=== PATIENT | male | born 1965 | race Caucasian/White ===

== ENCOUNTER 2020-09-17 09:01 | Outpatient (REF) | payer BC, SELFPAY ==
[2020-09-17 09:40] LABS: Hematocrit 40.4 % (42-52); Hemoglobin 13.9 g/dl (14.0-18.0); Mean Corpuscular HGB Conc 34.4 g/dl (31.0-36.0); Mean Corpuscular Hemoglobin 29.3 pg (27.0-33.0); Mean Corpuscular Volume 85.2 fL (80-98); Mean Platelet Volume 9.9 fL (9.4-12.4); Platelet Count 291 X10*3/uL (160-400); Red Blood Count 4.74 X10*6/uL (4.60-5.80); Red Cell Distribution Width 12.1 % (11.0-16.0)
[2020-09-17 10:19] LABS: Alanine Aminotransferase 85 U/L (0-40); Albumin Level 4.4 g/dL (3.5-5.0); Alkaline Phosphatase 116 U/L (39-117); Aspartate Amino Transferase 43 U/L (5-37); Bilirubin Total 0.8 mg/dL (0.0-1.0); Blood Urea Nitrogen 19 mg/dL (9-16); Calcium 8.7 mg/dL (8.4-10.2); Estimated Glomerular Filt Rate > 60; Glucose Fasting 117 mg/dL (60-99)
[2020-09-17 10:26] LABS: Thyroid Stimulating Hormone 0.61 uIU/mL (0.32-4.0)
[2020-09-17 10:30] LABS: Anion Gap 12 (12-20); Carbon Dioxide 25 mmol/L (22-29); Chloride 103 mmol/L (96-108); Potassium 4.2 mmol/L (3.3-5.1); Sodium 136 mmol/L (135-145)
[2020-09-17 10:39] LABS: Creatinine Urine 104.31 mg/dL; Microalbum/Creatinine Ratio Ur 4.7 ug/mg cr
[2020-09-17 11:42] LABS: Estimated Average Glucose 146 mg/dL; Hemoglobin A1c % 6.7 %
== END 2020-09-17 09:02 | disposition home or self-care (01) ==
LOC: HO.LAB 09:01
PROVIDERS: PCP Internal Medicine; Visit Provider Internal Medicine
DX: E11.9 Type 2 diabetes mellitus without complications (principal); E78.2 Mixed hyperlipidemia
CPT/HCPCS: 36415; 80053; 82043; 83036; 84443; 85027

== ENCOUNTER 2020-10-04 09:49 | Outpatient (REF) | payer BC, SELFPAY ==
--- NOTE | ~2020-10-04 | US_ITS ---
EXAMINATION: US ABDOMEN COMPLETE CLINICAL INFORMATION: Abnormal LFTs. COMPARISON: Ultrasound abdomen complete 09/27/2020. CT abdomen and pelvis 10/18/2013. TECHNIQUE: Real-time imaging of the abdominal viscera. FINDINGS: PANCREAS: Visualized portions unremarkable. ABDOMINAL AORTA: Visualized portions unremarkable. INFERIOR VENA CAVA: Visualized portions unremarkable. LIVER: Diffuse increased echotexture without focal abnormality. GALLBLADDER: Unremarkable. COMMON BILE DUCT: Normal in caliber measuring 0.4 cm in diameter. RIGHT KIDNEY: 11.7 cm. Unremarkable. LEFT KIDNEY: 11.8 cm. Unremarkable. SPLEEN: 11.1 cm. Unremarkable. FREE FLUID: None. US/US abdomen complete IMPRESSION: Hepatic steatosis without focal abnormality. No other significant abnormality.
== END 2020-10-04 09:50 | disposition home or self-care (01) ==
LOC: HO.US 09:49
PROVIDERS: Visit Provider Internal Medicine
DX: R94.5 Abnormal results of liver function studies (principal)
CPT/HCPCS: 76700

== ENCOUNTER 2021-01-03 17:58 | Emergency (ER) | payer BC, SELFPAY ==
[2021-01-03 18:11] VITALS: BP 145/83; PULSE 67; RESP 18; TEMP 36.7; O2SAT 96; BMI 28.8
[2021-01-03] MEDS: Fluorescein Sodium STRIP 1 STRIP EYE-RIGHT (19:49)
[2021-01-03] MEDS: Tetracaine HCl/PF 0.5% Oph Sol 4 ML DROPS 1 DROP EYE-BOTH (19:49)
--- NOTE | 2021-01-03 19:49 | ED_ITS ---
HPI - General Adult General Chief complaint: General Medical Stated complaint: bug bite Time Seen by Provider: 01/03/21 19:38 Source: patient Mode of arrival: ambulatory Limitations: no limitations History of Present Illness HPI narrative: Patient comes emergency room complaining of a bedbug bite to his right upper eyelid. Patient states it started as a vesicle, then it started spreading towards the upper eyelid and right below the eyebrow. Patient states it is very painful. Patient denies pain inside of his eye, no pain with eye movement. Denies fever chills Related Data Previous Rx's Medication Instructions Recorded ibuprofen 600 mg PO TID PRN #14 tab 01/03/21 tramadol 50 mg PO Q8H PRN #10 tab 01/03/21 valacyclovir 1,000 mg PO TID 7 Days #21 tab 01/03/21 Allergies Allergy/AdvReac Type Severity Reaction Status Date / Time No Known Allergies Allergy Mild N/A Unverified 05/03/20 16:02 Review of Systems Review of Systems: Constitutional : No Weight loss, No Fever, No Chills, No Night Sweats, No Fatigue, No Malaise ENT/Mouth : No Hearing loss, No Ear Pain, No Nasal Congestion, No Sinus Pain, No Hoarseness, No sore throat, No Rhinorrhea, No Swallowing Difficulty Eyes: No Eye Pain, No Swelling, No Redness, No Foreign Body, No Discharge, No Vision Changes Cardiovascular : No Chest Pain, No SOB, No Dyspnea on Exertion, No Orthopnea, No Edema, No Palpitations Respiratory : No Cough, No Sputum, No Wheezing, No Smoke Exposure, No Dyspnea Gastrointestinal : No Nausea, No Vomiting, No Diarrhea, No Constipation, No abdominal Pain, No Hematochezia, No Melena Genitourinary : no irregular bleeding, No Dysuria, No Urinary Frequency, No Hematuria, No Urinary Incontinence, No Urgency, No Flank Pain, No Urinary Flow Changes, No Hesitancy Musculoskeletal : No joint pain, No Myalgias, No Joint Swelling Skin : Vesicular rash in upper eyelid on the right eye and below the eyebrow Neuro : No Weakness, No Numbness, No Paresthesias, No Loss of Consciousness, No Dizziness, No Headache Psych : No Anxiety/Panic, No Depression, No SI/HI/AH/VH, No Social Issues, Heme/Lymph: No Bruising, No Bleeding,No Lymphadenopathy Endocrine : No Polyuria, No Polydipsia, No Temperature Intolerance [facility] Social History Social History Advance Directives: No Advance Directives Information Provided: Yes Physical Exam Vital Signs: Vital Signs: Last Vital Signs Temp 98.0 F 01/03/21 18:11 Pulse 67 01/03/21 18:11 Resp 18 01/03/21 18:11 BP 145/83 H 01/03/21 18:11 Pulse Ox 96 01/03/21 18:11 Body Mass Index 28.8 Appearance: Alert. Oriented X3. No acute distress. Eyes: Pupils equal, round and reactive to light. On exam with Wood's lamp and fluorescein stain, patient did not have herpetic dendritic ulcers present. See skin below ENT: Pharynx normal. Neck: Normal inspection. Neck supple. No lymph nodes noted. No crepitus CVS: Normal heart rate and rhythm. Pulses normal. Normal S1 and S2 Respiratory: No respiratory distress. Breath sounds normal. No Wheezing. No rales Abdomen: Soft and nontender. No rigidity. No distention. good BS x4 Skin: Skin warm and dry. Patient has a vesicular rash below the eyebrow on the right side and in the outer eyelid, exam consistent with shingles Extremities: No lower extremity edema. No lower extremity edema. No Lacerations. No Rash Neuro: Oriented X 3. No motor deficit. No sensory deficit. Moving all extermities. No slurred speech. Course Course Course Narrative: I discussed with the patient that he needs close follow-up with Ophthalmology. If he has any ocular symptoms, he needs to return immediately to the emergency room. Patient was given the 1st dose of acyclovir here in the emergency room Discharge Plan Discharge Clinical Impression: Shingles of eyelid Patient Disposition: Home, Self-Care Instructions: Shingles (ED) Additional Instructions: Please call Ophthalmology tomorrow to schedule an appointment. Please follow-up with your primary care physician tomorrow. If you have any worsening or new symptoms, please return to the emergency room or call 911 Prescriptions: New valacyclovir 1 gram tablet 1,000 mg PO TID 7 Days Qty: 21 RF: 0 ibuprofen 600 mg tablet 600 mg PO TID PRN (Reason: pain) Qty: 14 RF: 0 tramadol 50 mg tablet 50 mg PO Q8H PRN (Reason: pain) Qty: 10 RF: 0 Referrals: Barry Romero [Physician] - 01/04/21 9:00 am (Herpes zoster ophthalmicus)
== END 2021-01-03 20:19 | disposition home or self-care (01) ==
PROVIDERS: Emergency Provider Emergency Medicine; PCP Internal Medicine
DX: B02.39 Other herpes zoster eye disease (principal)
CPT/HCPCS: 99283

== ENCOUNTER 2022-08-13 10:40 | Outpatient (REF) | payer BC, SELFPAY ==
--- NOTE | ~2022-08-13 | XR_ITS ---
EXAMINATION: XR SHOULDER, RIGHT CLINICAL INFORMATION: Chronic shoulder pain. COMPARISON: None. TECHNIQUE: AP external rotation, Grashey, scapular Y, and axillary views of the right shoulder. FINDINGS: The bones and soft tissues are normal. No fracture. Glenohumeral and acromioclavicular alignment is anatomic with normal joint space. No abnormal soft tissue calcifications. XR/XR shoulder RT min 2V IMPRESSION: Unremarkable right shoulder exam.
== END 2022-08-13 10:41 | disposition home or self-care (01) ==
LOC: HO.XRAY 10:40
PROVIDERS: Visit Provider Pediatrics
DX: M25.511 Pain in right shoulder (principal)
CPT/HCPCS: 73030

== ENCOUNTER 2023-03-19 07:43 | Outpatient (REF) | payer BC, SELFPAY ==
--- NOTE | ~2023-03-19 | XR_ITS ---
EXAMINATION: XR ELBOW, LEFT CLINICAL INFORMATION: Pain COMPARISON: None available. TECHNIQUE: AP, lateral, and oblique views of the left elbow. FINDINGS: There are multiple osseous densities along the lateral elbow joint. Large bone fragment is seen anterior to the elbow joint on lateral view. The exact site of origin of this fragment is not known but could be arising from the proximal ulna. These are most likely secondary to old injury. There is moderate anterior joint effusion. Moderate's posterior elbow soft tissue swelling seen. XR/XR elbow LT min 3V IMPRESSION: 1. Moderate anterior joint effusion with moderate posterior elbow soft tissue swelling. 2. There are multiple osseous densities along the lateral elbow joint likely from old injury. 3. There is a large bone fragment anterior to the elbow joint from trauma. The fragment may be arising from proximal ulna. Recommend CT or MRI for further correlation..
== END 2023-03-19 07:44 | disposition home or self-care (01) ==
LOC: HO.HOSX 07:43
PROVIDERS: Visit Provider Physician Assistant
DX: M19.022 Primary osteoarthritis, left elbow (principal); S50.02XA Contusion of left elbow, initial encounter
CPT/HCPCS: 73080

== ENCOUNTER 2023-03-19 10:14 | Outpatient (AMB) | payer BC, SELFPAY ==
--- NOTE | 2023-03-19 10:25 | A.OFFVIS_ITS ---
Intake Intake Visit Reasons: FC - Lt elbow fx, DOI 02/25/23 Intake Note: Yaakov is a 57 year old right hand dominant male who presents today for a fracture care appointment for his left elbow fx, DOI 02/25/23. Patient reports he had a fall outside leading him to land on his left side. He states thta Allergies No Known Allergies Allergy (Mild, Verified 03/19/23 10:29) N/A HPI FC - Lt elbow fx, DOI 02/25/23 HPI Details 57-year-old right hand dominant male, who is Citizen Of [place] speaking, presents in the office today, as a new patient, for an evaluation of left elbow pain. The patient reports he injured his left elbow when he fell while outside, which occurred on 02/25/2023. He states when he was younger he was on the roof and fell off causing him to injury the elbow. He states the elbow can pop in out out of place. He states he has limited ROM, which decreased more since his most recent fall. [facility] Medical History (Updated 03/19/23 @ 11:03 by Betzaida Bloom) History of high blood pressure History of high cholesterol Social History (Updated 03/19/23 @ 10:34 by Lavelle Ortega) Alcohol intake: never Patient Tobacco Use Status: Never used Tobacco Current occupational status: employed Current occupation: right hand dominant Review of Systems Const All systems reviewed & are unremarkable except as noted in HPI and below Physical Exam Const General: cooperative and no acute distress Orientation/consciousness: patient oriented x3 Resp Effort & Inspection: normal respiratory effort and able to speak in complete sentences Cardio Peripheral pulses: Peripheral pulses 2+ throughout Skin General skin exam: no rashes or lesions noted Neuro General: patient oriented x3 Extrem Other: Left elbow: Lateral sided epicondyle tenderness to palpation. ROM is lacking 15 degrees of forward flexion. Able to flex to 90 degrees. Full pronation and supination. NVI. Assessment & Plan Assessment & Plan (1) Arthritis of left elbow: Code(s): M19.022 - Primary osteoarthritis, left elbow (2) Left elbow contusion: Code(s): S50.02XA - Contusion of left elbow, initial encounter Plan Mr. Ortega is a 57-year-old right hand dominant male, who is Citizen Of [place] speaking, presents in the office today, as a new patient, for an evaluation of left elbow pain. The patient reports he injured his left elbow when he fell while outside, which occurred on 02/25/2023. He states when he was younger he was on the roof and fell off causing him to injury the elbow. He states the elbow can pop in out out of place. He states he has limited ROM, which decreased more since his most recent fall. Dr. Crowley was available to review the x-rays with me while in the office today and collaborative treatment plan was made. He will be referred for a CT to further evaluate the integrity of the left elbow. He will call the office after the CT scan is obtained to schedule his follow up. Follow up will be after the CT scan is obtained, or sooner if needed. X-rays of the left elbow which were obtained while in the office today and were reviewed by me, Carolina Mayers PA-C, revealed evidence of old fracture lateral epicondyle. Arthritis noted. Orders: Orders XR elbow LT min 3V Today M25.529 - Pain in unspecified elbow CT elbow LT wo IV con Today M19.022 - Primary osteoarthritis, left elbow, S50.02XA - Contusion of left elbow, initial encounter Patient Instructions: Scribed for Carolina Mayers PA-C by Betzaida Bloom biomedical engineering aide, on 03/19/2023 at 10:25 am, EST. Coding Level of Care Code New Pt Level 4 (34106) Diagnoses Arthritis of left elbow M19.022 Left elbow contusion S50.02XA
== END 2023-03-19 12:04 | disposition home or self-care (01) ==
PROVIDERS: PCP Internal Medicine; Visit Provider Physician Assistant
DX: M19.022 Primary osteoarthritis, left elbow (principal); S50.02XA Contusion of left elbow, initial encounter
CPT/HCPCS: 99204

== ENCOUNTER 2023-04-17 10:29 | Outpatient (REF) | payer BC, SELFPAY ==
--- NOTE | ~2023-04-17 | CT_ITS ---
EXAMINATION: CT ELBOW WITHOUT CONTRAST, LEFT CLINICAL INFORMATION: Contusion of left elbow, initial encounter. COMPARISON: Radiographs dated 03/19/2023. TECHNIQUE: Multidetector volumetric imaging was obtained through the left elbow without contrast. Multiplanar reformatted images in coronal and sagittal orientations were submitted. This CT examination was performed using dose optimization techniques as appropriate, variously including the following: *Automated exposure control *Adjustment of mA and/or kV according to patient size (this includes techniques or standardized protocols for targeted exams where dose is matched to indication/reason for exam; i.e. extremities or head) *Use of iterative reconstruction technique DLP: 164.71 mGy-cm FINDINGS: There is a chronic shear fracture through the coronoid process at its middle-third with distraction of the fragments by 0.5 cm laterally. Minimal comminution is present at the medial and lateral margins. Cortication is noted along the fracture margins, indicating the chronic nature of the fracture. The radius and ulna appear probably situated at the distal humerus. There is a cluster of ossific fragments in the lateral aspect of the joint measuring 1.5 x 0.8 x 2.1 cm in aggregate and measuring up to 0.9 cm in diameter individually. These may correspond to intra-articular loose bodies or, alternatively, avulsed osseous fragments related to a radial collateral ligament and common extensor tendon injury as there is adjacent osseous irregularity at the lateral epicondyle. Significant subcortical cystic change is present in the lateral epicondyle in this region. At the posteromedial aspect of the trochlea, there is a 0.7 x 1.4 cm defect in the articular cortex, likely corresponding to a site of osteochondral injury. Multiple punctate ossific fragments are present within the posteromedial aspect of the joint, measuring up to 5 mm in diameter, likely corresponding to a osteochondral loose bodies. There is eydr-su-lgiwxahd nonuniform joint space narrowing at the ulnotrochlear joint and, to a lesser extent, the radiocarpal joint with small marginal osteophytes. Large joint effusion. Assessment of tendons and ligaments is somewhat limited by CT, though the biceps, brachialis, and triceps appear intact. No muscle atrophy. CT/CT elbow LT wo IV con IMPRESSION: 1. Chronic coronoid process fracture with distraction by 5 mm. 2. Multiple ossific fragments in the lateral aspect of the elbow joint may correspond to loose bodies or hypertrophied avulsed osseous fragments from the lateral epicondyle related to a radial collateral ligament/common extensor tendon injury. 3. Osteochondral injury at the posteromedial aspect of the trochlea with small adjacent loose osteochondral fragments. 4. Large joint effusion. 5. Chxg-sh-twxvthuf osteoarthritis at the ulnotrochlear joint and, to a lesser extent, the radiocarpal joint.
== END 2023-04-17 10:30 | disposition home or self-care (01) ==
LOC: HO.CT 10:29
PROVIDERS: PCP Internal Medicine; Visit Provider Physician Assistant
DX: M19.022 Primary osteoarthritis, left elbow (principal); S50.02XA Contusion of left elbow, initial encounter
CPT/HCPCS: 73200

== ENCOUNTER 2023-05-04 12:21 | Outpatient (AMB) | payer BC, SELFPAY ==
--- NOTE | 2023-05-04 12:30 | A.OFFVIS_ITS ---
Intake Intake Visit Reasons: OV, CT review of the left elbow Intake Note: The patient agreed to use of a medical attendant during this encounter. Scribed for Dr. Adarsh Crowley by Amy Agustin, medical attendant, on 05/04/2023 at 12:41 pm EST. Nuno is a 57 year old male who presents today for a CT review of the left elbow. Allergies No Known Allergies Allergy (Mild, Verified 05/04/23 12:31) N/A HPI OV, CT review of the left elbow HPI Details Yaakov Ortega is a American speaking 57 year male that is here today for a CT review of the left elbow. He describes limited motion with minimal pain. He sustaiend a dislocation after a fall 2 months ago. He recently obtained a CT scan and is here for review. He denies catching or locking but cannot fully extend or bend elbow. [facility] Medical History (Updated 05/04/23 @ 12:58 by Amy Agustin) Post-traumatic osteoarthritis, left elbow History of high cholesterol History of high blood pressure Social History Alcohol intake: never Patient Tobacco Use Status: Never used Tobacco Current occupational status: employed Current occupation: right hand dominant Physical Exam Extrem Other: 10-110 deg full sup/pro no effusion Results Reviewed Results Reviewed: 1. Chronic coronoid process fracture with distraction by 5 mm. 2. Multiple ossific fragments in the lateral aspect of the elbow joint may correspond to loose bodies or hypertrophied avulsed osseous fragments from the lateral epicondyle related to a radial collateral ligament/common extensor tendon injury. 3. Osteochondral injury at the posteromedial aspect of the trochlea with small adjacent loose osteochondral fragments. 4. Large joint effusion. 5. Tpqh-fy-xsyucbzf osteoarthritis at the ulnotrochlear joint and, to a lesser extent, the radiocarpal joint. Assessment & Plan Assessment & Plan (1) Post-traumatic osteoarthritis, left elbow: Code(s): M19.122 - Post-traumatic osteoarthritis, left elbow Plan: Post traumatic OA. Little pain and reasonable motion. No mechanical symptoms of catching or locking. Discussed CT and treatment options. Given OA and CT fi ndings his motion is reasonable. I discussed PT and ROM exercises which he elected to do at home Coding Level of Care Code Est Pt Level 4 (37503) Diagnoses Post-traumatic osteoarthritis, left elbow M19.122
== END 2023-05-04 12:59 | disposition home or self-care (01) ==
PROVIDERS: PCP Internal Medicine; Visit Provider Orthopaedic Surgery
DX: M19.122 Post-traumatic osteoarthritis, left elbow (principal)
CPT/HCPCS: 99213

== ENCOUNTER → 2023-05-04 12:21 | Outpatient (BNVA) | payer BC, SELFPAY | PROVIDERS: PCP Internal Medicine; Visit Provider Orthopaedic Surgery ==

== ENCOUNTER 2024-04-01 08:02 | Day surgery (SDC) | payer BC, SELFPAY ==
[2024-03-30 11:36] VITALS: BMI 29.2
--- NOTE | 2024-03-30 15:19 | HO.ANESPROP2 ---
Documented by User: Octavia Little NP 03/30/24 15:20 HPI - Anesthesia Eval Consult details Narrative: 58yo M for Colonoscopy [facility] Active Problems Active Problems: All Active Problems Left elbow contusion (Acute) Arthritis of left elbow (Acute) Post-traumatic osteoarthritis, left elbow (Acute) Past Medical History Medical History (Updated 03/30/24 @ 11:37 by Justine Rivera RN) Diabetes Post-traumatic osteoarthritis, left elbow History of high cholesterol History of high blood pressure Surgical History Surgical History (Updated 03/30/24 @ 11:38 by Justine Rivera RN) Hx of shoulder surgery H/O colonoscopy Social History Social History Alcohol intake: never Patient Tobacco Use Status: Never used Tobacco Use of substances other than those prescribed or required for medical reasons: No Are you DNR?: No Advance Directives: No Advance Directives Information Provided: Yes Current occupational status: employed Current occupation: right hand dominant Meds Allergies Allergy/AdvReac Type Severity Reaction Status Date / Time No Known Allergies Allergy Mild N/A Verified 05/04/23 12:31 Home Medications ?Medication ?Instructions ?Recorded ?Confirmed ?Last Taken ?Type lisinopril 5 mg tablet 5 mg PO DAILY 03/19/23 03/30/24 Unknown History simvastatin 40 mg tablet 40 mg PO DAILY 03/19/23 03/30/24 Unknown History metformin 500 mg tablet 500 mg PO Q12H 03/30/24 03/30/24 Unknown History Exam Height,Weight and Vital Signs: Height 5 ft 9 in Weight 89.811 kg Assessment and Plan Assessment Anesthesia Assessment: Chart Reviewed Documented by User: Rosendo Morales MD 04/01/24 10:26 [facility] Past Medical History Medical History (Updated 03/30/24 @ 11:37 by Justine Rivera RN) Diabetes Post-traumatic osteoarthritis, left elbow History of high cholesterol History of high blood pressure Family History Family history of problems with anesthesia: No Surgical History Surgical History (Updated 03/30/24 @ 11:38 by Justine Rivera RN) Hx of shoulder surgery H/O colonoscopy History of Problems with Anesthesia: No Social History Social History Alcohol intake: never Patient Tobacco Use Status: Never used Tobacco Use of substances other than those prescribed or required for medical reasons: No Are you DNR?: No Advance Directives: No Advance Directives Information Provided: Yes Current occupational status: employed Current occupation: right hand dominant Meds Allergies Allergy/AdvReac Type Severity Reaction Status Date / Time No Known Allergies Allergy Mild N/A Verified 05/04/23 12:31 Home Medications ?Medication ?Instructions ?Recorded ?Confirmed ?Last Taken ?Type lisinopril 5 mg tablet 5 mg PO DAILY 03/19/23 03/30/24 Unknown History simvastatin 40 mg tablet 40 mg PO DAILY 03/19/23 03/30/24 Unknown History metformin 500 mg tablet 500 mg PO Q12H 03/30/24 03/30/24 Unknown History Exam Airway Mallampati Class: II TM Dist: <=3cm Neck ROM: Full Loose/Missing/Broken Teeth: No Heart: ok Lungs: ok Assessment and Plan Assessment Anesthesia Assessment: Anesthesia Plan Discussed Final Anesthetic Review Family History of Problems with Anesthesia: No History of Problems with Anesthesia: No NPO: Yes ASA Class: II Final Preanesthetic Review: No Changes in Pt Med Stat, Meds/Allgs Chart Reviewed, Consent Obtained/Reviewed and Anes Risks/Benef Reviewed Patient Risk: Low Procedure Risk: Low Anesthetic Plan Anesthetic Plan: MAC: and Agree w/ Assess. and Plan Disposition: Standard PACU
[2024-04-01 09:06] VITALS: BMI 28.1
[2024-04-01 09:08] LABS: Glucose, Whole Blood 161 mg/dL (60-115)
[2024-04-01 09:11] VITALS: BP 147/90; PULSE 62; RESP 16; TEMP 36.6; O2SAT 97
[2024-04-01] MEDS: Lactated Ringers 1,000 ML 100 ML IVCONT (09:14)
[2024-04-01 10:57] VITALS: BP 122/80; PULSE 71; RESP 18; TEMP 36.1; O2SAT 95
--- NOTE | 2024-04-01 11:00 | P.BOP_ITS ---
Brief Operative Note Date of Service: 04/01/24 Pre-op diagnosis: Screening Post-op diagnosis: other (Diverticulosis) Procedure: Colonoscopy to the cecum and TI Surgeon: Yanick Corona MD Anesthesia: MAC Was an Irrigation Technician used for this Procedure?: No Estimated blood loss (mL): 0 Pathology: none sent Condition: stable Disposition: PACU
[2024-04-01 11:12] VITALS: BP 142/87; PULSE 58; RESP 20; O2SAT 96
[2024-04-01 11:27] VITALS: BP 151/94; PULSE 63; RESP 20; TEMP 36.1; O2SAT 96
--- NOTE | 2024-04-01 11:31 | OP_ITS ---
DATE OF SERVICE: 04/01/2024 SURGEON: Yanick Corona MD INDICATIONS: The patient presents for evaluation of personal history of tubular adenoma of the colon and colorectal cancer screening, as well as family history of colon cancer. Full consent was obtained from him for this, including risks of bleeding and perforation. PREOPERATIVE DIAGNOSIS: POSTOPERATIVE DIAGNOSIS: PROCEDURE PERFORMED: ESTIMATED BLOOD LOSS: COMPLICATIONS: ANESTHESIA: Monitored anesthesia care. ASSISTANTS: SPECIMENS: PROCEDURE: Colonoscopy to cecum and terminal ileum. PREOPERATIVE DIAGNOSES: Colorectal cancer screening, family history of colon cancer. POSTOPERATIVE DIAGNOSES: Colorectal cancer screening, family history of colon cancer, diverticulosis and internal hemorrhoids. DESCRIPTION OF PROCEDURE: The patient was placed in left lateral decubitus position. The digital rectal exam revealed no abnormalities. The Olympus video pediatric colonoscope was entered into the rectum and advanced easily to the cecum. Once in the cecum, I did identify normal-appearing cecal pouch with appendiceal orifice a normal-appearing ileocecal valve. The terminal ileum was cannulated and appeared normal. Scope was withdrawn back in the colon. The entire cecum and ileocecal valve appeared normal. The scope was slowly withdrawn assessing all mucosal surfaces carefully. Preparation was excellent. I did not visualize any sign of polyps, colitis, nor angiodysplasia. There were occasional diverticula in the sigmoid colon. In the rectum, scope was retroflexed visualizing internal hemorrhoids, but no other pathology. The rectal mucosa appeared normal. Scope was straightened and withdrawn from the patient. He tolerated the procedure well and was returned to recovery area in stable condition. IMPRESSION: 1. Mild diverticulosis. 2. Small internal hemorrhoids. PLAN: Given his previous history and family history, I would recommend a followup coloscopy in 5 years for further screening. He will otherwise see me on a p.r.n. basis. MD MARCIO Carpenter/DIONNE / [id number]
== END 2024-04-01 11:50 | disposition home or self-care (01) ==
PROVIDERS: PCP Internal Medicine; Visit Provider Internal Medicine
PROC: 0DJD8ZZ Inspection of Lower Intestinal Tract, Via Natural or Artificial Opening Endoscopic (ICD-10-PCS; CPT 45378; principal; 2024-04-01 10:00)
DX: Z12.11 Encounter for screening for malignant neoplasm of colon (principal); K57.30 Diverticulosis of large intestine without perforation or abscess without bleeding; K64.8 Other hemorrhoids; Z86.010 Personal history of colon polyps; Z80.0 Family history of malignant neoplasm of digestive organs; E11.9 Type 2 diabetes mellitus without complications; E78.5 Hyperlipidemia, unspecified; I10 Essential (primary) hypertension; Z79.02 Long term (current) use of antithrombotics/antiplatelets; Z79.84 Long term (current) use of oral hypoglycemic drugs; Z79.899 Other long term (current) drug therapy
CPT/HCPCS: 45378; 82947; J2704

== ENCOUNTER → 2024-09-22 12:28 | Outpatient (REF) ==
--- NOTE | ~2024-09-22 | XR_ITS ---
EXAMINATION: XR SHOULDER, LEFT CLINICAL INFORMATION: chronic left shoulder pain COMPARISON: None available. TECHNIQUE: Four views of the left shoulder. FINDINGS: Subchondral cyst formation along the articular surface of the acromioclavicular joint. Probable bony island in the left humeral head/neck. No acute cortical disruption or malalignment. XR/XR shoulder LT min 2V IMPRESSION: Mild degenerative changes in the acromioclavicular joint. Electronically signed by: Bhupinder Cantu MD 09/22/2024 01:02 PM [facility]NAE B[facility]T
--- OUTSIDE RECORDS SUMMARY | 2024-09-22 12:31 | XMS_ITS | Encounter Summary ---
Author Organization [employer] Address [address] [place] [address] Care Team Providers Care Chucking Machine Set Up Operator Tool Name Role Phone Brant Bryan MD Primary Care Provider [phone] Reason for Referral * Consultation (Routine) - Pending Review Specialty Diagnoses / Procedures Referred By Davian bonilla Referred To Contact Physical Therapy Diagnoses Chronic left shoulder pain Brant Bryan MD [address] [place] [address] Phone: tel: fax: Referral ID Status Reason Start Date Expiration Date Visits Requested Visits Authorized [id number] Pending Review Specialty Services Required 09/22/2024 09/22/2025 1 1 Encounter Details Date Type Department Care Team (Late st Contact Info) Description 09/22/2024 11:30 AM EST Office Visit [facility] MED & PEDS [address] [place] [address] Brant Bryan MD [address] [place] [address] Type 2 diabetes mellitus without complication, without long-term current use of insulin ([facility]) (Primary Dx); Benign hypertension; Chronic left shoulder pain Social History Tobacco Use Types Packs/Day Years Used Date Smoking Tobacco: Never Passive Smoke Exposure: Never Smokeless Tobacco: Never Alcohol Use Standard Drinks/Week Comments Defer 0 (1 standard drink = 0.6 oz pur e alcohol) Depression Answer Date Recorded Patient Health Questionnaire-9 Score 0 09/22/2024 Patient Health Questionnaire-9 Score 0 09/22/2024 Last PHQ-9: Questionnaire Data Not on file 0 09/22/2024 Depression Answer Date Recorded Patient Health Questionnaire-2 Score 0 09/22/2024 Sex and Gender Information Value Date Recorded Sex Assigned at Male 06/16/2022 10:18 AM EDT Legal Sex Male 10:18 AM EDT Gender Identity Choose not to disclose 10:18 AM EDT Sexual Orientation Choose not to disclose 2021 10:18 AM EDT documented as of this encounter Last Filed Vital Signs Vital Sign Reading Time Taken Comments Blood Pressure 126/85 09/22/2024 11:43 AM EST Pulse 66 09/22/2024 11:43 AM EST Temperature 36.6 ??C (97.9 ??F) 09/22/2024 11:[address] Respiratory Rate 20 09/22/2024 11:43 AM EST Oxygen Saturation - - Inhaled Oxygen Concentration - - Weight 88.5 kg (195 lb 2 oz) 09/22/2024 11:43 AM EST Height 173.5 cm (5' 8.31 ) 09/22/2024 11:[address] shoes off Body Mass Index 29.4 09/22/2024 11:43 AM EST documented in this encounter Plan of Treatment Upcoming Encounters Date Type Department Care Team (Late st Contact Info) Description 12/02/2024 11:00 AM EDT Office Visit [facility] OPTOMETRY [address] [place] [address] Edith Monk, OD [address] [place] [address] 12/08/2024 10:00 AM EDT Office Visit [facility] ADULT DENTAL [address] [place] [address] Zachary Dianearis [address] [place] [address] 12/13/2024 11:30 AM EDT Office Visit [facility] CHC MED & PEDS [address] [place], [place] [phone] Brant Bryan MD [address] [place], [place] [phone] Scheduled Orders Name Type Priority Associated Diagnoses Orde r Schedule XR Shoulder 2+ Views Left Imaging Routine Chronic left shoulder pain Expected: 09/22/2024, Expires: 09/22/2025 Scheduled Referrals Name Type Priority Associated Diagnoses Orde r Schedule Referral to Physical Therapy Outpatient Referral Routine Chronic left shoulder pain Expected: 09/22/2024 (Approximate), Expires: 09/22/2025 documented as of this encounter Procedures Procedure Name Priority Date/Time Associated Diagnosis Comments POCT GLYCATED HEMOGLOBIN, TOTAL Routine 09/22/2024 11:54 AM EST Type 2 diabetes mellitus without complication, without long-term current use of insulin ([facility]) POCT GLUCOSE Routine 09/22/2024 11:53 AM EST Type 2 diabetes mellitus without complication, without long-term current use of insulin ([facility]) documented in this encounter Results * (ABNORMAL) POCT HGB A1C (09/22/2024 11:54 AM EST) Hemoglobin A1C 7.1(A) 4.0 - 6.0 % QC Media Lot # [id number] Lot# Expiration Date Blood 09/22/2024 11:5 4 AM EST Brant Bryan MD POINT OF CARE TEST ENTER/ED IT ORDERABLES Final Result * POCT Glucose (09/22/2024 11:53 AM EST) Glucose Blood, POC 133 60 - 200 mg/dL QC Media Lot # [id number] Lot# Expiration Date 482,[id number] Blood Capillary blood specimen / Unknown 09/22/2024 11:53 AM EST Brant Bryan MD POINT OF CARE TEST ENTER/ED IT ORDERABLES Final Result documented in this encounter Visit Diagnoses Diagnosis Type 2 diabetes mellitus without complication, without long-term current use of insulin ([facility])- Primary Benign hypertension Essential hypertension, benign Chronic left shoulder pain Pain in joint, shoulder region documented in this encounter Additional Health Concerns Assessment Noted Time PHQ-9 Depression Total Score: 0 09/22/19 25 12:00 PM EST documented as of this encounter Care Teams Chucking Machine Set Up Operator Tool Relationship Specialty Start Date End Date Brant Bryan MD [address] [place] [address] PCP - General Internal Medicine 09/12/13 documented as of this encounter
--- OUTSIDE RECORDS SUMMARY | 2024-09-22 12:31 | XMS_ITS | Encounter Summary ---
Author Organization [employer] Address [address] [place] [address] [address] [address] Care Team Providers Care Rig Manager Name Role Phone Brant Bryan MD Primary Care Provider [phone] Reason for Visit * Reason Comments Med Refill Encounter Details Date Type Department Care Team (Late Contact Info) Description 08/31/2024 Refill [facility] CHC MED & PEDS [address] [place], [place] [phone] Brant Bryan MD [address] [place] [address] Myalgia Social History Tobacco Use Types Packs/Day Years Used Date Smoking Tobacco: Never Passive Smoke Exposure: Never Smokeless Tobacco: Never Alcohol Use Standard Drinks/Week Comments Defer 0 (1 standard drink = 0.6 oz pur e alcohol) Depression Answer Date Recorded Patient Health Questionnaire-9 Score 0 09/02/2022 Depression Answer Date Recorded Patient Health Questionnaire-2 Score 0 09/02/2022 Sex and Gender Information Value Date Recorded Sex Assigned at Male 06/16/2022 10:18 AM EDT Legal Sex Male 10:18 AM EDT Gender Identity Choose not to disclose 10:18 AM EDT Sexual Orientation Choose not to disclose 2021 10:18 AM EDT documented as of this encounter Plan of Treatment Upcoming Encounters Date Type Department Care Team (Late Contact Info) Description 12/02/2024 11:00 AM EDT Office Visit [facility] OPTOMETRY [address] [place] [address] LachoEdith enrique, OD [address] [place] [address] 12/08/2024 10:00 AM EDT Office Visit [facility] ADULT DENTAL [address] [place], [place] [phone] Benedicto, Monik [address] [place] [address] 12/13/2024 11:30 AM EDT Office Visit [facility] CHC MED & PEDS [address] [place] [address] Brant Bryan MD [address] [place] [address] documented as of this encounter Visit Diagnoses Diagnosis Myalgia Unspecified myalgia and myositis documented in this encounter Additional Health Concerns Assessment Noted Time PHQ-9 Depression Total Score: 0 09/02/19 23 9:38 AM EST documented as of this encounter Care Teams Rig Manager Relationship Specialty Start Date End Date Brant Bryan MD [address] [place] [address] PCP - General Internal Medicine 09/12/13 documented as of this encounter
--- OUTSIDE RECORDS SUMMARY | 2024-09-22 12:31 | XMS_ITS | Encounter Summary ---
Author Organization [employer] Address [address] [place] [address] [address] [place] [address] Care Team Providers Care Correctional Case Manager Name Role Phone Brant Bryan MD Primary Care Provider [phone] Reason for Visit * Reason Comments Med Refill Encounter Details Date Type Department Care Team (Late st Contact Info) Description 09/07/2022 Refill [facility] CHC MED & PEDS [address] [place], [place] [phone] Brant Bryan MD [address] [place] [address] Hypercholesterolemia (Primary Dx); Seasonal allergic rhinitis due to other allergic trigger Social History Tobacco Use Types Packs/Day Years Used Date Smoking Tobacco: Never Smokeless Tobacco: Never Depression Answer Date Recorded Patient Health Questionnaire-9 Score 0 09/02/2022 Depression Answer Date Recorded Patient Health Questionnaire-2 Score 0 09/02/2022 Sex and Gender Information Value Date Recorded Sex Assigned at Male 06/16/2022 10:18 AM EDT Legal Sex Male 10:18 AM EDT Gender Identity Choose not to disclose 10:18 AM EDT Sexual Orientation Choose not to disclose 2021 10:18 AM EDT COVID-19 Exposure Response Date Recorded In the last 10 days, have yo u been in contact with someone who was confirmed or suspected to have Coronavirus/COVID-19? No / Unsure 09/02/2022 9:14 AM EST documented as of this encounter Plan of Treatment Upcoming Encounters Date Type Department Care Team (Late Contact Info) Description 12/02/2024 11:00 AM EDT Office Visit [facility] OPTOMETRY [address] [place] [address] LachoEdith enrique, OD [address] [place] [address] 12/08/2024 10:00 AM EDT Office Visit [facility] ADULT DENTAL [address] [place] [address] Benedicto, Monik [address] [place] [address] 12/13/2024 11:30 AM EDT Office Visit [facility] CHC MED & PEDS [address] [place] [address] Brant Bryan MD [address] [place] [address] documented as of this encounter Visit Diagnoses Diagnosis Hypercholesterolemia- Primary Pure hypercholesterolemia Seasonal allergic rhinitis due to other allergic trigger documented in this encounter Additional Health Concerns Assessment Noted Time PHQ-9 Depression Total Score: 0 09/02/19 23 9:38 AM EST documented as of this encounter Care Teams Correctional Case Manager Relationship Specialty Start Date End Date Brant Bryan MD [address] [place] [address] PCP - General Internal Medicine 09/12/13 documented as of this encounter
--- OUTSIDE RECORDS SUMMARY | 2024-09-22 12:31 | XMS_ITS | Encounter Summary ---
Author Organization [employer] Address [address] [place] [address] [address] [place] [address] Care Team Providers Care Banquet Pilot Name Role Phone Brant Bryan MD Primary Care Provider [phone] Encounter Details Date Type Department Care Team (Latest Contact Info) Description 01/18/[address] [facility] CONVERSIONS Dental, Provider, DDS Social History Tobacco Use Types Packs/Day Years Used Date Smoking Tobacco: Never Assessed Sex and Gender Information Value Date Recorded [...] Description 12/02/2024 11:00 AM EDT Office Visit [facility] OPTOMETRY [address] [place] [address] Edith Monk, OD [address] [place] [address] 12/08/2024 10:00 AM EDT Office Visit [facility] ADULT DENTAL [address] [place] [address] Benedicto, Monik [address] [place] [address] 12/13/2024 11:30 AM EDT Office Visit [facility] CHC MED & PEDS [address] [place] [address] Brant Bryan MD [address] [place] [address] documented as of this encounter Visit Diagnoses Not on filedocumented in this encounter Care Teams Banquet Pilot Relationship Specialty Start Date End Date Brant Bryan MD [address] [place] [address] PCP - General Internal Medicine 09/12/13 documented as of this encounter
--- OUTSIDE RECORDS SUMMARY | 2024-09-22 12:31 | XMS_ITS | Encounter Summary ---
Author Organization [facility] Address [address] [place] [address] [address] [address] Care Team Providers Care Chief Deputy Coroner Name Role Phone Brant Bryan MD Primary Care Provider [phone] Encounter Details Date Type Department Care Team (Late Contact Info) Description 06/22/2023 Abstract [facility] MEDICINE [address] [place] [address] Zuri Pinon Social History Tobacco Use Types Packs/Day Years [...] Description 12/02/2024 11:00 AM EDT Office Visit [facility] OPTOMETRY [address] [place] [address] Edith Monk, OD [address] [place] [address] 12/08/2024 10:00 AM EDT Office Visit [facility] ADULT DENTAL [address] [place], [place] [phone] Benedicto Monik [address] [place] [address] 12/13/2024 11:30 AM EDT Office Visit [facility] CHC MED & PEDS [address] [place] [address] Brant Bryan MD [address] [place] [address] documented as of this encounter Procedures Procedure Name Priority Date/Time Associated Diagnosis Comments COLONOSCOPY Routine 10/17/2016 COLONOSCOPY Routine 10/06/2014 documented in this encounter Results * Colonoscopy (10/17/2016) Colonoscopy Normal Normal Narrative Zuri Pinon - 10/17/2016 Recommended 5 year follow up us Historical Provider HEALTH MAINTENANCE Final Result * Colonoscopy (10/06/2014) Colonoscopy Normal Normal us Historical Provider HEALTH MAINTENANCE Final Result documented in this encounter Visit Diagnoses Not on filedocumented in this encounter Additional Health Concerns Assessment Noted Time PHQ-9 Depression Total Score: 0 09/02/19 23 9:38 AM EST documented as of this encounter Care Teams Chief Deputy Coroner Relationship Specialty Start Date End Date Brant Bryan MD [address] [place] [address] PCP - General Internal Medicine 09/12/13 documented as of this encounter
--- OUTSIDE RECORDS SUMMARY | 2024-09-22 12:31 | XMS_ITS | Encounter Summary ---
Author Organization [employer] Address [address] [place] [address] [address] [place] [address] Care Team Providers Care Drink Waiter Name Role Phone Brant Bryan MD Primary Care Provider [phone] Encounter Details Date Type Department Care Team (Latest Contact Info) Description 03/28/2022 Abstract [facility] CONVERSIONS Dental, Provider, DDS Social History Tobacco [...] 11:00 AM EDT Office Visit [facility] OPTOMETRY [address] [place] [address] Edith Monk, OD [address] [place] [address] 12/08/2024 10:00 AM EDT Office Visit [facility] ADULT DENTAL [address] [place] [address] Benedicto, Monik [address] [place] [address] 12/13/2024 11:30 AM EDT Office Visit [facility] CHC MED & PEDS [address] [place] [address] Brant Bryan MD [address] [place] [address] documented as of this encounter Visit Diagnoses Not on filedocumented in this encounter Care Teams Drink Waiter Relationship Specialty Start Date End Date Brant Bryan MD [address] [place] [address] PCP - General Internal Medicine 09/12/13 documented as of this encounter
--- OUTSIDE RECORDS SUMMARY | 2024-09-22 12:31 | XMS_ITS | Clinical Summary ---
Author Organization [employer] Address [address] [facility] [address] [place] [address] Care Team Providers Care Right Of Way Appraiser Name Role Phone Brant Bryan MD Primary Care Provider [phone] Allergies No known active allergies Medications lisinopril 5 MG tablet TAKE 1 TABLET BY MOUTH EVERY DAY ONE DOSE 02/08/20 22 Active nystatin (Mycostatin) 336999 UNIT/GM powder APPLY TO AFFECTED AREA 3 TIMES A DAY 06/09/20 22 Active Lancets (OneTouch Delica Plus [id number]) misc USE TO TEST ONCE DAILY 03/04/20 22 Active simvastatin (Zocor) 40 MG tabletIndicatio ns:Hypercholest erolemia TAKE 1 TABLET BY MOUTH EVERY DAY ONE DOSE*NOT PHARMACY PARTICIPATING* 90 tablet 1 03/27/20 23 Active metFORMIN (Glucophage) 500 MG tabletIndicatio ns:Type 2 diabetes mellitus without complication, without long-term current use of insulin ([facility]) Take 1 tablet (500 mg) by mouth every 12 (twelve) hours. 60 tablet 10 08/12/20 23 Active OneTouch Ultra Test test strip USE TO TEST ONCE DAILY 100 strip 5 12/18/19 24 Active lisinopril 5 MG tablet TAKE 1 TABLET BY MOUTH EVERY DAY ONE DOSE 90 tablet 1 03/01/20 24 Active azelastine (Astelin) 0.1 % nasal sprayIndication s:Seasonal allergic rhinitis, unspecified trigger Administer 1 spray into each nostril 2 times daily. Use in each nostril as directed 30 mL 12 05/26/20 24 025 Active fexofenadine (Jael) 180 MG tabletIndicatio ns:Seasonal allergic rhinitis due to other allergic trigger Take 1 tablet (180 mg) by mouth Once per day. 90 tablet 05/26/20 24 Active Diclofenac Sodium 1 % gelIndications: Myalgia TO APPLY TO THE AFFECTED AREA 4 TIMES A DAY 100 g 08/31/19 25 Active celecoxib (CeleBREX) 200 MG capsuleIndicati ons:Chronic left shoulder pain Take 1 capsule (200 mg) by mouth 2 times daily. 60 capsule 09/22/19 25 025 Active Diclofenac Sodium (Voltaren) 1 % gelIndications: Myalgia To apply to the affected area 4 times a day 100 g 08/08/20 24 025 Discontinued Active Problems Problem Noted Date Diagnosed Date Localized gingival recession 08/11/2023 Dental calculus 12/02/2022 Seasonal allergic rhinitis 09/08/2022 Steatosis of liver 04/01/2022 Intertrigo 05/09/2021 Benign hypertension 02/08/2021 Hypercholesterolemia 09/10/2018 Type 2 diabetes mellitus without complication Encounters Date Type Department Care Team Description 09/22/2024 11:30 AM EST Office Visit [facility] [address] [place] [address] Brant Bryan MD Type 2 diabetes mellitus without complication, without long-term current use of insulin ([facility]) (Primary Dx); Benign hypertension; Chronic left shoulder pain 09/22/2024 Travel 08/31/2024 Refill [facility] [address] [place] [address] Brant Bryan MD Myalgia 08/08/2024 11:00 AM EST Office Visit [facility] [address] [place] [address] Brant Bryan MD Benign hypertension (Primary Dx); Type 2 diabetes mellitus without complication, without long-term current use of insulin (CMS/HCC); Myalgia 08/08/2024 Travel 07/18/2024 Telephone [facility] [address] [place] [address] Brant Bryan MD Walk-In from Last 3 Months Immunizations Name Administration Dates Next Due Influenza injectable quadriv alent IIV4 with preservative 07/09/2016,06/07/2015 Influenza injectable quadrivalent preservative f ree 05/11/2023,05/09/2021 Influenza, IIV3, injectable 06/05/2014 Influenza, seasonal, injectable, preservative fr ee 2024 Pfizer Covid-19 Vaccine 12+ 2024 Pneumococcal Conjugate PCV 20 2024 Pneumococcal Polysaccharide PPSV23 04/01/2022 Tdap 08/08/2016 Zoster, Recombinant 04/17/2021,02/13/2021 Family History Medical History Relation Name Comments Hypertension Brother Alzheimer's disease Mother Diabetes Mother Hypertension Mother Relation Name Status Comments Brother Mother Social History Tobacco Use Types Packs/Day Years Used Date Smoking Tobacco: Never Passive Smoke Exposure: Never Smokeless Tobacco: Never Tobacco Cessation:Counseling Given: Not Answered Alcohol Use Standard Drinks/Week Comments Defer 0 [...] not to disclose 2021 10:18 AM EDT Last Filed Vital Signs Vital Sign Reading Time Taken Comments Blood Pressure 126/85 09/22/2024 11:43 AM EST Pulse 66 09/22/2024 11:43 AM EST Temperature 36.6 ??C (97.9 ??F) 09/22/2024 11:[address] Respiratory Rate 20 09/22/2024 11:43 AM EST Oxygen Saturation 98% 08/08/2024 10:55 AM EST Inhaled Oxygen Concentration - - Weight 88.5 kg (195 lb 2 oz) 09/22/2024 11:43 AM EST Height 173.5 cm (5' 8.31 ) 09/22/2024 11:[address] shoes off Body Mass Index 29.4 09/22/2024 11:43 AM EST Plan of Treatment Upcoming Encounters Date Type Department Care Team (Late st Contact Info) Description 12/02/2024 11:00 AM EDT Office Visit [facility] OPTOMETRY [address] [place] [address] Edith Monk, OD [address] [place] [address] 12/08/2024 10:00 AM EDT Office Visit [facility] ADULT DENTAL [address] [place] [address] Benedicto, Monik [address] [place] [address] 12/13/2024 11:30 AM EDT Office Visit [facility] CHC MED & PEDS [address] [place], [place] [phone] Brant Bryan MD [address] [place] [address] Health Maintenance Due Date Last Done Comments CT Colonography 1963 FIT DNA/Cologuard 1963 FIT 1963 FOBT 1963 HIV Screening 1963 SDOH Screening 1963 Sigmoidoscopy 1963 Alcohol/Substance Use Screening 1975 Hepatitis A Vaccines (1 of 2 - Risk 2-dose series) 1982 Diabetes: Urine Protein Screening 04/10/2023 04/10/2022, 09/17/2020, 10/17/2019 Lipid Panel 04/10/2023 04/10/2022 Hepatitis B Vaccines (1 of 3 - Risk 3-dose series) 2023 RSV Patients and Patients Aged 60 years or older (1 - Risk 60-74 years 1-dose series) 2023 Diabetes: Foot Exam 01/08/2024 01/07/2023, 01/07/2023, 01/07/2023, Additional history exists Dental Oral Exam 10/19/2024 04/20/2024, 03/28/2022 Dental Prophylaxis 12/07/2024 06/07/2024, 1 10/12/2022, 12/02/2022 Diabetes: Hemoglobin A1C 12/20/2024 025, 2024, 11/05/2023, Additional history exists Dental X-Ray: Full Mouth 03/29/2025 03/28/2022 Dental X-Ray: Bitewings 04/21/2025 04/20/20 24, 08/11/2023, 01/18/2021 Eye Exam 06/15/2025 06/15/2023, 05/19, 06/15/2023, Additional history exists Tobacco Screening 08/08/2025 08/08/2024 Depression Screening 09/22/2025 09/22/2024, 09/22/19 25 DTaP/Tdap/Td Vaccines (2 - Td or Tdap) 08/08/2026 08/08/2016 Colonoscopy 04/01/2029 04/13/2024, 03/17, 10/19/2016, Additional history exists Colorectal Cancer Screening 04/01/2029 Zoster Vaccines Completed 04/17/2021, 02/13/2021 Hepatitis C Screening Completed 04/10/2022 COVID-19 Vaccine Completed 2024, , 12/20/2020, Additional history exists Influenza Vaccine Completed 2024, , 05/09/2021, Additional history exists Pneumococcal Vaccine: 50+ Years Completed 2024, 04/01/2022 HIB Vaccines Aged Out No longer eligi ble based on patient's age to complete this topic HPV Vaccines Aged Out No longer eligi ble based on patient's age to complete this topic IPV Vaccines Aged Out No longer eligi ble based on patient's age to complete this topic Meningococcal Vaccine Aged Out No fidencio keith eligible based on patient's age to complete this topic RSV under 20 months Aged Out No longe r eligible based on patient's age to complete this topic Rotavirus Vaccines Aged Out No longer eligible based on patient's age to complete this topic Procedures Procedure Name Priority Date/Time Associated Diagnosis Comments POCT GLYCATED HEMOGLOBIN, TOTAL Routine 09/22/2024 11:54 AM EST Type 2 diabetes mellitus without complication, without long-term current use of insulin (CMS/HCC) POCT GLUCOSE Routine 09/22/2024 11:53 AM EST Type 2 diabetes mellitus without complication, without long-term current use of insulin (CMS/HCC) POCT GLUCOSE Routine 08/08/2024 10:56 AM EST Type 2 diabetes mellitus without complication, without long-term current use of insulin (CMS/HCC) PROPHYLAXIS - ADULT Routine 06/07/2024 1 0:00 AM EDT Dental calculus BITEWINGS - 4 RADIOGRAPHIC IMAGES Routine 04/20/2024 11:00 AM EDT PERIODIC ORAL EVALUATION - ESTABLISHED PATIENT Routine 04/20/2024 11:00 AM EDT COLONOSCOPY Routine 04/13/2024 1:13 PM EDT ZZZ HISTORICAL HEPATITIS C AB W/REFL TO HCV RNA, QN, PCR Routine 04/10/2022 8:51 AM EDT ALBUMIN, RANDOM URINE W/CREATININE Routine 04/10/2022 8:51 AM EDT LIPID PANEL, STANDARD Routine 04/10/2022 8:51 AM EDT from Last 3 Months or Most Recently Relevant to Health Maintenance Results * (ABNORMAL) POCT HGB A1C (09/22/2024 11:54 AM EST) Hemoglobin A1C 7.1(A) 4.0 - 6.0 % QC Media Lot # [id number] Lot# Expiration Date Blood 09/22/2024 11:5 4 AM EST Brant Bryan MD POINT OF CARE TEST ENTER/ED IT ORDERABLES Final Result * POCT Glucose (09/22/2024 11:53 AM EST) Only the most recent of2 resultswithin the time period is included. Glucose Blood, POC 133 60 - 200 mg/dL QC Media Lot # [id number] Lot# Expiration Date [id number] Blood Capillary blood specimen / Unknown 09/22/2024 11:53 AM EST Brant Bryan MD POINT OF CARE TEST ENTER/ED IT ORDERABLES Final Result * (ABNORMAL) Colonoscopy (04/01/2024) Anatomical Region Laterality Modality Endoscopy Narrative 04/01/[address] Yanick Corona: Mild diverticulosis, small internal hemorrhoids. Given pt personal history and family history, he needs a repeat colonoscopy in 5 years. Historical Provider ENDOSCOPY PROCEDURE ORDER ALAYNA Final Result * HEPATITIS C AB W/REFL TO HCV RNA, QN, PCR (04/10/2022 8:51 AM EDT) HEPATITIS C ANTIBODY NON-REACT DAGOBERTO NON-REACT DAGOBERTO [facility] INDEX 0.16 <1.00 [facility] Comment: ?? HCV antibody was non-reactive. There is no laboratory ?? evidence of HCV infection. ?? In most cases, no further action is required. However, if recent HCV exposure is suspected, a test for HCV RNA (test code 65698) is suggested. ?? For additional information please refer to http://education.TableGrabber/faq/OPC78x7 (This link is being provided for informational/ educational purposes only.) ?? 04/10/2022 8:51 AM EDT Brant Bryan MD HISTORICAL/NON ORDERABLE LA BS Final Result [facility] [address] * ALBUMIN, RANDOM URINE W/CREATININE (04/10/2022 8:51 AM EDT) Microalbumin Urine 0.6 See Note: mg/dL [facility] Comment: Reference Range: ?? Reference Range Not established Microalb/Creat Ratio 4 <30 mcg/mg creat [facility] Comment: ?? The ADA defines abnormalities in albumin excretion as follows: ?? Albuminuria Category ?Result (mcg/mg creatinine) ?? Normal to Mildly increased ?? <30 Moderately increased ? 30-299 ?? Severely increased ? > OR = 300 ?? The ADA recommends that at least two of three specimens collected within a 3-6 month period be abnormal before considering a patient to be within a diagnostic category. Creatinine, Urine 171 20 - 320 mg/dL [facility] 04/10/2022 8:51 AM EDT us Brant Bryan MD LAB URINE ORDERABLES Final Result [facility] [address] * (ABNORMAL) LIPID PANEL, STANDARD (04/10/2022 8:51 AM EDT) Chol/HDLC Ratio 4.7 <5.0 (calc) [facility] Cholesterol, Total 173 <200 mg/dL [facility] HDL Cholesterol 37(L) > OR = 40 mg/dL [facility] LDL Cholesterol 102(H) mg/dL (calc) [facility] Comment: Reference range: <100 ?? Desirable range <100 mg/dL for primary prevention; ?? <70 mg/dL for patients with CHD or diabetic patients ?? with > or = 2 CHD risk factors. ?? LDL-C is now calculated using the Shirley ?? calculation, which is a validated novel method providing ?? better accuracy than the Friedewald equation in the ?? estimation of LDL-C. ?? Randolph ARMAS et al. FREDDIE. 2013;310(19): 2911-5184 ?? (http://education.Cirrascale.Mango DSP/faq/GGO084) Non-HDL Cholesterol 136(H) <130 mg/dL (calc) [facility] Comment: For patients with diabetes plus 1 major ASCVD risk ?? factor, treating to a non-HDL-C goal of <100 mg/dL ?? (LDL-C of <70 mg/dL) is considered a therapeutic ?? option. Triglycerides 227(H) <150 mg/dL [facility] Comment: ?? If a non-fasting specimen was collected, consider repeat triglyceride testing on a fasting specimen if clinically indicated. ?? Kendrick et al. J. of Clin. Lipidol. 2015;9:129-169. ?? 04/10/2022 8:51 AM EDT us Brant Bryan MD LAB BLOOD ORDERABLES Final Result [facility] [address] from Last 3 Months or Most Recently Relevant to Health Maintenance Insurance [facility] Care Teams Right Of Way Appraiser Relationship Specialty Start Date End Date Brant Bryan MD [address] [place] [id number] PCP - General Internal Medicine 09/12/13
--- OUTSIDE RECORDS SUMMARY | 2024-09-22 12:31 | XMS_ITS | Encounter Summary ---
Author Organization [employer] Address [address] [place] [address] [address] [place] [address] Care Team Providers Care Hemodialysis Charge Nurse Name Role Phone Brant Bryan MD Primary Care Provider [phone] Encounter Details Date Type Department Care Team (Latest Contact Info) Description 10/04/2019 Abstract [facility] CONVERSIONS Dental, Provider, DDS Social History [...] 12/02/2024 11:00 AM EDT Office Visit [facility] OPTOMETRY [address] [place] [address] Edith Monk, OD [address] [place] [address] 12/08/2024 10:00 AM EDT Office Visit [facility] ADULT DENTAL [address] [place] [address] Benedicto Monik [address] [place] [address] 12/13/2024 11:30 AM EDT Office Visit [facility] CHC MED & PEDS [address] [place] [address] Brant Bryan MD [address] [place] [address] documented as of this encounter Visit Diagnoses Not on filedocumented in this encounter Care Teams Hemodialysis Charge Nurse Relationship Specialty Start Date End Date Brant Bryan MD [address] [place] [address] PCP - General Internal Medicine 09/12/13 documented as of this encounter
--- OUTSIDE RECORDS SUMMARY | 2024-09-22 12:31 | XMS_ITS | Encounter Summary ---
Author Organization [facility] Address [address] [place] [address] [address] [place] [address] Care Team Providers Care Rn Access Name Role Phone Brant Bryan MD Primary Care Provider [phone] Encounter Details Date Type Department Care Team (Latest Contact Info) Description 09/22/2024 Travel Social History Tobacco Use Types Packs/Day Years [...] Description 12/02/2024 11:00 AM EDT Office Visit [facility] OPTOMETRY [address] [place] [address] Lacho, Edith, OD [address] [place] [address] 12/08/2024 10:00 AM EDT Office Visit [facility] ADULT DENTAL [address] [place] [address] Benedicto, Monik [address] [place], [place] [phone] 12/13/2024 11:30 AM EDT Office Visit [facility] CHC MED & PEDS [address] [place] [address] Brant Bryan MD [address] [place] [address] documented as of this encounter Visit Diagnoses Not on filedocumented in this encounter Additional Health Concerns Assessment Noted Time PHQ-9 Depression Total Score: 0 09/22/19 25 12:00 PM EST documented as of this encounter Care Teams Rn Access Relationship Specialty Start Date End Date Brant Bryan MD [address] [place] [address] PCP - General Internal Medicine 09/12/13 documented as of this encounter
--- OUTSIDE RECORDS SUMMARY | 2024-09-22 12:31 | XMS_ITS | Encounter Summary ---
Author Organization [employer] Address [address] [place] [address] [address] [place] [address] Care Team Providers Care Worsted Winder Name Role Phone Brant Bryan MD Primary Care Provider [phone] Encounter Details Date Type Department Care Team (Late Contact Info) Description 08/18/2023 Orders Only [facility] MED & PEDS [address] [place], [place] [phone] Brant Bryan MD [address] [place] [address] Seasonal allergic rhinitis, unspecified trigger Social History Tobacco Use Types Packs/Day [...] [facility] OPTOMETRY [address] [place], [place] [phone] Lacho, Edith, OD [address] [place], [place] [phone] 12/08/2024 10:00 AM EDT Office Visit [facility] ADULT DENTAL [address] [place] [address] Benedicto, Monik [address] [place] [address] 12/13/2024 11:30 AM EDT Office Visit [facility] CHC MED & PEDS [address] [place] [address] Brant Bryan MD [address] [place] [address] documented as of this encounter Visit Diagnoses Diagnosis Seasonal allergic rhinitis, unspecified trigger documented in this encounter Additional Health Concerns Assessment Noted Time PHQ-9 Depression Total Score: 0 09/02/19 23 9:38 AM EST documented as of this encounter Care Teams Worsted Winder Relationship Specialty Start Date End Date Brant Bryan MD [address] [place] [address] PCP - General Internal Medicine 09/12/13 documented as of this encounter
== END | disposition home or self-care (01) ==
LOC: HO.XRAY 12:28
DX: M25.512 Pain in left shoulder (principal); G89.29 Other chronic pain

== ENCOUNTER → 2024-09-22 12:31 | Outpatient (BNV) | payer BC, SELFPAY | PROVIDERS: PCP Internal Medicine; Visit Provider Radiology Diagnostic Radiology | DX: M25.512 Pain in left shoulder (principal) | CPT/HCPCS: 73030 ==

== ENCOUNTER 2024-10-19 11:50 | Outpatient (RCR) | payer BC, SELFPAY | END 2025-01-18 11:42 | disposition home or self-care (01) | LOC: HO.PT 11:50 | PROVIDERS: PCP Internal Medicine; Visit Provider Internal Medicine | DX: G89.29 Other chronic pain (principal); M25.512 Pain in left shoulder ==

== ENCOUNTER 2024-11-11 11:50 | Outpatient (RCR) | payer BC, SELFPAY | END 2025-01-06 15:08 | disposition home or self-care (01) | LOC: HO.PT 11:50 | PROVIDERS: PCP Internal Medicine; Visit Provider Internal Medicine | DX: M25.512 Pain in left shoulder (principal); G89.29 Other chronic pain | CPT/HCPCS: 97110; 97140; 97161; 97535 ==